=== PATIENT | male | born 1960 | race Caucasian/White ===

== ENCOUNTER 2023-11-03 21:17 | Emergency (ER) | payer OTHER ==
[~2023-11-03] VITALS: Ht 182.9 cm; Wt 120.0 kg
[2023-11-03] MEDS ORDERED: CEFADROXIL500 MG PO (21:29)
[2023-11-03] MEDS ORDERED: LASIX20 MG PO (21:29)
[2023-11-03] MEDS ORDERED: ALBUTEROL/IPRATROPIUM 3 ML NEB INH ONE (21:30)
[2023-11-03 21:42] LABS: PH, VENOUS 7.473 (7.31-7.41)
[2023-11-03 21:44] LABS: BASOPHILS 0.6 % (0-2); EOSINOPHILS 1.3 % (0-6); HEMATOCRIT 39.7 % (35.0-50.0); HEMOGLOBIN 13.3 g/dL (12.0-18.0); LYMPHOCYTES 21.7 % (24-44); MCH 27.4 (27-36); MCHC 33.5 g/dl (30-36); MONOCYTES 8.6 % (0-12); NEUTROPHILS 67.8 % (39-80); PLATELET COUNT 257 K/uL (140-440); RBC 4.84 M/ul (4.3-5.7); RDW 14.2 (10.5-15.0)
[2023-11-03 22:13] LABS: ALBUMIN 3.8 g/dL (3.4-5.0); ALBUMIN/GLOBULIN RATIO 0.84 (1.1-2.4); ANION GAP 14.2 (7-21); BILIRUBIN, TOTAL 0.6 ng/dL (0.2-1.0); BUN/CREATININE RATIO 20.51 (6.0-28.6); CALCIUM 8.9 mg/dL (8.5-10.1); CREATININE, SERUM 0.78 mg/dL (0.70-1.30); POTASSIUM 4.2 mmol/L (3.5-5.1); PROTEIN, TOTAL 8.3 g/dL (6.4-8.2)
[2023-11-03 22:21] LABS: INFLUENZA B NAA NEGATIVE (NEGATIVE); RESPIRATORY SYNCYTIAL VIR NAA NEGATIVE (NEGATIVE)
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
[2023-11-04] MEDS ORDERED: AZITHROMYCIN 250 MG HOME.PACK PO ONE (00:15)
[2023-11-04] MEDS ORDERED: INHALER, ASSIST DEVICES 1 EACH SPACER MISC ONE (00:15)
[2023-11-04] MEDS ORDERED: methylPREDNISolone 4 MG HOME.PACK PO ONE (00:15)
[2023-11-04] MEDS ORDERED: ALBUTEROL SULFATE 8 GM HOME.PACK INH ONE (00:15)
[2023-11-04 00:25] VITALS: BP 158/87
--- NOTE | 2023-11-04 15:05 | EKG ---
[facility] [address] [place] [address] Signed Normal sinus rhythm Normal ECG No previous ECGs available Confirmed by Kitty Ribeiro MD () on 11/04/2023 3:04:50 PM Electronically Signed By: KITTY RIBEIRO MD 11/04/23 1505 PATIENT NAME: MANSI BRANTLEY Electrocardiogram DATE OF : 64 PHYSICIAN: KITTY RIBEIRO MD REPORT #: [id number] REPORT IS CONFIDENTIAL AND NOT TO BE RELEASED WITHOUT AUTHORIZATION
== END 2023-11-04 00:25 | disposition home or self-care (01) ==
LOC: ED 21:17
PROVIDERS: Family Medicine
DX: J98.11 Atelectasis (principal); J40 Bronchitis, not specified as acute or chronic; Z88.0 Allergy status to penicillin; Z79.899 Other long term (current) drug therapy
CPT/HCPCS: 36415; 71045; 71260; 80053; 82803; 83880; 84484; 85025; 85379; 87502; 93005; 93010; 94640; Q9967; U0002